=== PATIENT | female | born 1980 | race Caucasian/White ===

== ENCOUNTER 2017-07-03 19:25 | Emergency (ER) | payer BC ==
[~2017-07-03] VITALS: Ht 167.6 cm; Wt 49.2 kg
[2017-07-03] MEDS ORDERED: LORAZEPAM 0.5 MG TAB ONE (19:29)
[2017-07-03 19:45] VITALS: TEMP 36.5; Ht 167.6 cm; Wt 49.2 kg
[2017-07-03] MEDS ORDERED: SODIUM CHLORIDE 0.9% 1000ML 1,000 ML IV STA (20:04)
--- NOTE | 2017-07-03 20:19 | EMERGENCY ROOM VISIT NOTE ---
History Report prepared by Lian: Mark Elam Under the Supervision of: Dr. Monisha Burgos D.O. First contact with patient: 19:44 Chief Complaint: ANXIETY Stated Complaint: HYPERVENTALATING, ANXIETY History of Present Illness The patient is a 36 year old female who presents to the Emergency Room with complaints of sudden numbness and tingling beginning earlier today. The patient notes that she was driving earlier today when her whole body went numb. 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 The patient reports feeling tingling across her entire body, especially centering across her neck and hands. The patient notes that she was hyperventilating vigorously during the episode. She also states that she experienced spasms of her hands, dizziness (off balance and spinning), a minor headache, heart palpitations, and shortness of breath during the episode. She is unsure if her fingers changed color during the episode. The patient states that her symptoms have been improving ever since the episode. She denies experiencing any blurry vision, double vision, ringing in her ears, changes in her menstrual cycle, or changes in her diet. The patient reports a history of anxiety attacks, but does not feel like this episode was anxiety. She states that she has never experienced symptoms similar to her present symptoms in the past. The patient notes that she was given 2 Ativan by EMS NEUROLOGY PHYSICIAN ASSISTANT in the ED. She does not feel that the medication improved her symptoms. The patient reports vomiting 2 times earlier today and generally feeling shaky and nauseas secondary to a late night of drinking last night. She denies seeing any blood in her vomit. 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 She does not take Aspirin regularly or see a cleaner carpet and upholstery. She notes that she travelled 3 hours yesterday. Source of History: patient, sibling Onset: Earlier Today Position: other (global ) Quality: numbness (tinging) Timing: other (improving ) Associated Symptoms: + SOB Note: Associated Symptoms: Hand spasms, dizziness, and heart palpitations. Denies: Blurry vision, double vision, ringing in ears, changes in menstrual cycle, changes in diet. Review of Systems See HPI for pertinent positives & negatives. A total of 10 systems reviewed and were otherwise negative. Family History Patient reports no known family medical history. Social History Smoking Status: Current Every Day Smoker Current/Historical Medications No Active Prescriptions or Reported Meds Allergies Coded Allergies: No Known Allergies (Unverified , 07/03/17) Physical Exam Vital Signs Date Time Temp Pulse Resp B/P (MAP) Pulse Ox O2 Delivery O2 Flow Rate FiO2 07/03/17 22:52 97 14 93/91 99 07/03/17 21:38 68 19 99/51 99 Room Air 07/03/17 19:45 36.5 87 32 108/64 100 Room Air Physical Exam GENERAL: alert, well appearing, well nourished, no distress, non-toxic. Extremely anxious. EYE EXAM: normal conjunctiva, PERRL and EOM's grossly intact OROPHARYNX: no exudate, no erythema, lips, buccal mucosa, and tongue normal and mucous membranes are moist NECK: supple, no nuchal rigidity, no adenopathy, non-tender LUNGS: Clear to auscultation. Normal chest wall mechanics HEART: no murmurs, S1 normal and S2 normal ABDOMEN: abdomen soft, non-tender, normo-active bowel sounds, no masses, no rebound or guarding. BACK: Back is symmetrical on inspection and there is no deformity, no midline tenderness, no CVA tenderness. SKIN: no rashes and no bruising UPPER EXTREMITIES: upper extremities are grossly normal. Mild carpal pedal spasm. LOWER EXTREMITIES: No pitting edema. NEURO EXAM: Normal sensorium, cranial nerves II-XII [grossly] intact, normal speech, no [gross] weakness of arms, no [gross] weakness of legs. [No drift. Finger to nose intact. Gross sensation intact.] Medical Decision & Procedures ER Provider Diagnostic Interpretation: CHEST ONE VIEW PORTABLE CLINICAL HISTORY: Atypical chest pain COMPARISON STUDY: No previous studies for comparison. FINDINGS: The cardiac and mediastinal contours are normal. There is no evidence of focal pulmonary consolidation. There is no evidence of failure. No pleural effusions are visualized.[ An atrial septal occluder device is visualized. IMPRESSION: No active disease in the chest. Electronically signed by: Murray Palmer M.D. 07/03/2017 8:30 PM Dictated Date/Time: 07/03/2017 8:29 PM Laboratory Results 07/03/17 20:35 Red Blood Count 4.22, Mean Corpuscular Volume 89.8, Mean Corpuscular Hemoglobin 31.5, Mean Corpuscular Hemoglobin Concent 35.1, Mean Platelet Volume 9.1, Neutrophils (%) (Auto) 80.7, Lymphocytes (%) (Auto) 13.5, Monocytes (%) (Auto) 5.1, Eosinophils (%) (Auto) 0.3, Basophils (%) (Auto) 0.3, Neutrophils # (Auto) 7.97, Lymphocytes # (Auto) 1.33, Monocytes # (Auto) 0.50, Eosinophils # (Auto) 0.03, Basophils # (Auto) 0.03 07/03/17 20:35 Test 07/03/17 20:35 White Blood Count 9.87 K/uL (4.8-10.8) Red Blood Count 4.22 M/uL (4.2-5.4) Hemoglobin 13.3 g/dL (12.0-16.0) Hematocrit 37.9 % (37-47) Mean Corpuscular Volume 89.8 fL (80-100) Mean Corpuscular Hemoglobin 31.5 pg (25-34) Mean Corpuscular Hemoglobin Concent 35.1 g/dl (32-36) Platelet Count 236 K/uL (130-400) Mean Platelet Volume 9.1 fL (7.4-10.4) Neutrophils (%) (Auto) 80.7 % Lymphocytes (%) (Auto) 13.5 % Monocytes (%) (Auto) 5.1 % Eosinophils (%) (Auto) 0.3 % Basophils (%) (Auto) 0.3 % Neutrophils # (Auto) 7.97 K/uL (1.4-6.5) Lymphocytes # (Auto) 1.33 K/uL (1.2-3.4) Monocytes # (Auto) 0.50 K/uL (0.11-0.59) Eosinophils # (Auto) 0.03 K/uL (0-0.5) Basophils # (Auto) 0.03 K/uL (0-0.2) RDW Standard Deviation 39.5 fL (36.4-46.3) RDW Coefficient of Variation 12.2 % (11.5-14.5) Immature Granulocyte % (Auto) 0.1 % Immature Granulocyte # (Auto) 0.01 K/uL (0.00-0.02) Anion Gap 10.0 mmol/L (3-11) Est Creatinine Clear Calc Drug Dose 82.0 ml/min Estimated GFR () 121.9 Estimated GFR (Non- 105.2 BUN/Creatinine Ratio 13.7 (10-20) Calcium Level 9.2 mg/dl (8.5-10.1) Magnesium Level 2.0 mg/dl (1.8-2.4) Total Bilirubin 0.5 mg/dl (0.2-1) Aspartate Amino Transf (AST/SGOT) 19 U/L (15-37) Alanine Aminotransferase (ALT/SGPT) 22 U/L (12-78) Alkaline Phosphatase 61 U/L (45-117) Total Protein 7.6 gm/dl (6.4-8.2) Albumin 4.3 gm/dl (3.4-5.0) Globulin 3.3 gm/dl (2.5-4.0) Albumin/Globulin Ratio 1.3 (0.9-2) Thyroid Stimulating Hormone (TSH) 1.550 uIu/ml (0.300-4.500) Human Chorionic Gonadotropin, Qual NEG (NEG) Laboratory results per my review. Medications Administered Medications (Trade) Dose Ordered Sig/Sherman Route Start Time Stop Time Status Last Admin Dose Admin Sodium Chloride 1,000 ml @ 999 mls/hr Q1H1M STAT IV 07/03/17 20:04 07/03/17 21:04 DC 07/03/17 20:04 999 MLS/HR ECG Per My Interpretation Indication: palpitations Rate (beats per minute): 73 Rhythm: normal sinus Findings: no acute ischemic change, prolonged QT (borderline), no ectopy, other (Normal QRS) ED Course 1946: The patient was evaluated in room B6. A complete history and physical exam was performed. 2101: Ordered Sodium Chloride 1000 ml @ 999 mls/hr IV. 2142: I reevaluated the patient. She is feeling better and will be discharged after she is finished with her IV liter bag. Upon reevaluation, the patient is feeling better. I discussed the findings and the treatment plan with the patient. She verbalizes agreement and understanding. She was discharged home. Medical Decision Differential diagnosis: Etiologies such as premature contractions, electrolyte abnormality, cardiac dysrhythmia, thyroid dysfunction, pulmonary embolism, infection, gastrointestinal, as well as others were entertained. HEART score 1 low risk Wells, PERC negative Patient most likely with severe anxiety/panic attack contribute into hyperventilation and carpopedal spasm as well as global paresthesias. Patient here improved as anxiety improved. Patient concerned due to prior cardiac surgery. I do not suspect additional cardiac pathology. No evidence of infectious etiology. Patient's vital signs stable throughout. Patient's breathing slowed throughout interview and carpopedal spasm began to improve. Patient well-appearing at time of discharge, had been tolerating p.o. states felt back to normal, was able toward with a steady gait. Discussed adequate hydration, limiting caffeine consumption as well as alcohol consumption due to prevalence of anxiety. Discussed follow-up with family doctor regarding severity of this particular anxiety attack. Discussed symptoms to watch and return for, she verbalized understanding was agreeable to plan. I do not suspect thyroid storm, PE, no evidence of dysrhythmia, dissection, enlarging aneurysm or other vascular etiology, CVA, cerebellar infarct or bleed. Patient counseled against smoking. Medication Reconcilliation Current Medication List: was personally reviewed by me Blood Pressure Screening Patient's blood pressure: Normal blood pressure Impression Primary Impression: Palpitations Additional Impressions: Acute anxiety Tobacco abuse Scribe Attestation The scribe's documentation has been prepared under my direction and personally reviewed by me in its entirety. I confirm that the note above accurately reflects all work, treatment, procedures, and medical decision making performed by me. Departure Information Dispostion Home / Self-Care Prescriptions No Active Prescriptions or Reported Meds Referrals No Doctor, Assigned (PCP) Forms HOME CARE DOCUMENTATION FORM, IMPORTANT VISIT INFORMATION Patient Instructions ED Palpitations, ED Panic Attack, [facility] Additional Instructions Please drink plenty of fluids. Please avoid any stressful events, strenuous exercise or heavy lifting until you are feeling better. You may eat as tolerated. Please avoid caffeine if this can contribute to your anxiety or stress levels. Please be cautious when drinking alcohol. If you have any recurrent episodes of palpitations or chest pain, develop trouble breathing, develop more numbness or tingling, develop dizziness headaches, or passing out, you have any other new concerns, please return the emergency room. Problem Qualifiers
--- NOTE | 2017-07-03 20:31 | DIAGNOSTIC IMAGING REPORT ---
CHEST ONE VIEW PORTABLE CLINICAL HISTORY: Atypical chest pain COMPARISON STUDY: No previous studies for comparison. FINDINGS: The cardiac and mediastinal contours are normal. There is no evidence of focal pulmonary consolidation. There is no evidence of failure. No pleural effusions are visualized.[ An atrial septal occluder device is visualized. IMPRESSION: No active disease in the chest. Electronically signed by: Murray Palmer M.D. 07/03/2017 8:30 PM Dictated Date/Time: 07/03/2017 8:29 PM
[2017-07-03 20:50] LABS: BASO % 0.3 %; BASO ABS # 0.03 K/uL (0-0.2); EOS % 0.3 %; EOS ABS # 0.03 K/uL (0-0.5); HEMATOCRIT 37.9 % (37-47); HEMOGLOBIN 13.3 g/dL (12.0-16.0); IG# 0.01 K/uL (0.00-0.02); LYMPH % 13.5 %; LYMPH ABS # 1.33 K/uL (1.2-3.4); MEAN CELL VOLUME 89.8 fL (80-100); MEAN CORPUSCULAR HEMOGLOBIN 31.5 pg (25-34); MEAN CORPUSCULAR HGB CONC 35.1 g/dl (32-36); MEAN PLATELET VOLUME 9.1 fL (7.4-10.4); MONO % 5.1 %; NEUT % 80.7 %; NEUT ABS # 7.97 K/uL (1.4-6.5); PLATELET COUNT 236 K/uL (130-400); RED CELL DISTRIBUTION WIDTH CV 12.2 % (11.5-14.5); RED CELL DISTRIBUTION WIDTH SD 39.5 fL (36.4-46.3); WHITE BLOOD COUNT 9.87 K/uL (4.8-10.8)
[2017-07-03 21:28] LABS: ALBUMIN 4.3 gm/dl (3.4-5.0); CALCIUM 9.2 mg/dl (8.5-10.1); CREATININE 0.73 mg/dl (0.60-1.20); TOTAL PROTEIN 7.6 gm/dl (6.4-8.2)
[2017-07-03 21:37] LABS: POTASSIUM 3.6 mmol/L (3.5-5.1)
[2017-07-03 22:52] VITALS: BP 93/91; PULSE 97; O2SAT 99
== END 2017-07-03 22:52 | disposition home or self-care (01) ==
LOC: C.EDB 19:27
DX: R00.2 Palpitations (principal); F41.9 Anxiety disorder, unspecified; F17.200 Nicotine dependence, unspecified, uncomplicated; Z71.6 Tobacco abuse counseling